=== PATIENT | female | born 1970 | race Caucasian/White ===

== ENCOUNTER 2019-04-28 21:08 | Emergency (ER) | payer MEDICAID ==
[~2019-04-28] VITALS: Ht 162.6 cm; Wt 77.1 kg
--- NOTE | 2019-04-28 21:12 | NUR ---
PT NEO BAUGH. TAKEN TO BED 11
--- NOTE | 2019-04-28 21:13 | NUR ---
AMILCAR GARCIA AT [facility]
--- NOTE | 2019-04-28 21:13 | NUR ---
Ceci abdi in [facility] - 04/28/19 at 2134 by TONYA CHP AT BEDSIDE
[2019-04-28 21:17] VITALS: BP 140/82
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
[2019-04-28] MEDS ORDERED: KETOROLAC 60 MG/2 ML VIAL IM ONE (22:15)
--- NOTE | 2019-04-28 22:17 | NUR ---
X-Ray at bedside.
--- NOTE | 2019-04-28 23:33 | NUR ---
PT RETURN FROM CT
[2019-04-29 00:07] VITALS: BP 135/78
== END 2019-04-29 00:07 | disposition home or self-care (01) ==
LOC: MED 21:08
DX: S06.890A Other specified intracranial injury without loss of consciousness, initial encounter (principal); J45.909 Unspecified asthma, uncomplicated; E11.9 Type 2 diabetes mellitus without complications; Z98.890 Other specified postprocedural states; Y04.0XXA Assault by unarmed brawl or fight, initial encounter; Y93.89 Activity, other specified; Y92.89 Other specified places as the place of occurrence of the external cause; Y99.8 Other external cause status
CPT/HCPCS: 70450; 70486; 71045; 96372; 99285; J1885; Q0092